=== PATIENT | male | born 1980 | race African-American/Black ===

== ENCOUNTER 2019-10-13 09:31 | Emergency (ER) | payer OTHER ==
--- NOTE | 2019-10-13 09:46 | EDM.PDOC ---
ED HPI GENERAL MEDICAL PROBLEM - General Chief Complaint: Gastrointestinal Problem Stated Complaint: SPOKE TO NURSE Time Seen by Provider: 10/13/19 09:45 Source of Information: Reports: Patient History Limitations: Reports: No Limitations - History of Present Illness INITIAL COMMENTS - FREE TEXT/NARRATIVE: Patient is a 38-year-old male who is complaining of hemorrhoidal pain that is been ongoing for the past several days. Patient denies any bleeding to the area or any discharge. He has had hemorrhoids before. Denies any other symptoms and has no other complaints. Patient's has not been using any treatments. Onset: Gradual Quality: Reports: Ache, Throbbing Severity: Moderate Improves with: Reports: None Worsens with: Reports: Movement Associated Symptoms: Reports: No Other Symptoms rectum Pain Score (Numeric/FACES): 8 - Related Data Allergies Allergy/AdvReac Type Severity Reaction Status Date / Time No Known Allergies Allergy Verified 10/13/19 09:46 Home Meds: Home Meds . [No Known Home Meds] 10/13/19 [History] ED ROS GENERAL - Review of Systems Review Of Systems: Comprehensive ROS is negative, except as noted in HPI. ED EXAM, GI/ABD - Physical Exam Exam: See Below General Appearance: Alert, No Apparent Distress Respiratory/Chest: No Respiratory Distress GI/Abdominal Exam: Normal Bowel Sounds, Non-Tender, Other Rectal (Males) Exam: Hemorrhoids Back Exam: Normal Inspection ED ABDOMINAL/GI PROCEDURES - Additional/Other Procedure(s) Procedure(s) (Free Text): The base of patient's hemorrhoid was cleaned with antiseptic and then injected using 0.2% bupivacaine with epinephrine total of 5 cc without any complication. Patient tolerated procedure well is feeling much better after injection. Course - Vital Signs Last Recorded V/S: Last Vital Signs Temp 36.0 C 10/13/19 09:44 Pulse 97 10/13/19 09:44 Resp 18 10/13/19 09:44 BP 107/76 10/13/19 09:44 Pulse Ox 97 10/13/19 09:44 - Orders/Labs/Meds Meds: Medications Discontinued Medications Generic Name Dose Route Start Last Admin Trade Name Freq PRN Reason Stop Dose Admin Bupivacaine HCl/Epinephrine Bitart 10 ml 10/13/19 09:55 10/13/19 10:21 Marcaine 0.25%/Epinephrine 1:200,000 INFILT 10/13/19 09:56 10 ml ONETIME ONE Administration Bupivacaine HCl/Epinephrine Bitart 10 ml 10/13/19 10:15 10/13/19 10:21 Marcaine 0.25%/Epinephrine 1:200,000 INFILT 10/13/19 10:16 Not Given ONETIME ONE Departure - Departure Time of Disposition: 10:33 Disposition: Home, Self-Care 01 Condition: Good Clinical Impression: Hemorrhoid - Discharge Information Instructions: Nonsurgical Procedures for Hemorrhoids, Care After, Hemorrhoids, [id number] Referrals: PCP,None [Primary Care Provider] - Forms: ED Department Discharge Additional Instructions: The following information is given to patients seen in the emergency department who are being discharged to home. This information is to outline your options for follow-up care. We provide all patients seen in our emergency department with a follow-up referral. The need for follow-up, as well as the timing and circumstances, are variable depending upon the specifics of your emergency department visit. If you don't have a primary care physician on staff, we will provide you with a referral. We always advise you to contact your personal physician following an emergency department visit to inform them of the circumstance of the visit and for follow-up with them and/or the need for any referrals to a consulting specialist. The emergency department will also refer you to a specialist when appropriate. This referral assures that you have the opportunity for follow-up care with a specialist. All of these measure are taken in an effort to provide you with optimal care, which includes your follow-up. Under all circumstances we always encourage you to contact your private physician who remains a resource for coordinating your care. When calling for follow-up care, please make the office aware that this follow-up is from your recent emergency room visit. If for any reason you are refused follow-up, please contact the [facility] Emergency Department at and asked to speak to the emergency department charge nurse. Sepsis Event Note - Focused Exam Vital Signs: Vital Signs Temp Pulse Resp BP Pulse Ox 10/13/19 09:44 36.0 C 97 18 107/76 97 Date Exam was Performed: 10/13/19 Time Exam was Performed: 10:29
[2019-10-13] MEDS ORDERED: Bupivacaine 0.25%/EPINEPHrine 1:200,000 10 ML SDV INFILT ONE ×2 (09:55→10:15)
== END 2019-10-13 10:50 | disposition home or self-care (01) ==
LOC: MW.ED 09:31
DX: K64.9 Unspecified hemorrhoids (principal)
CPT/HCPCS: 99282; J3490